=== PATIENT | male | born 1950 | race Two or more races ===

== ENCOUNTER 2017-01-31 07:32 | Day surgery (SDC) | payer MEDICARE, OTHER ==
[~2017-01-31] VITALS: Ht 167.6 cm; Wt 92.5 kg
[2017-01-31] VITALS (9 sets, daily range): BP systolic 110–135; BP diastolic 65–76
[~2017-01-31 07:32] MED LIST: LR 1000ml 1,000 ML IVLG SCH
[2017-01-31] MEDS ORDERED: METFORMIN HCL1000 M1 ORAL (08:15)
[2017-01-31] MEDS ORDERED: METOPROLOL TART25 MG ORAL (08:15)
[2017-01-31] MEDS ORDERED: CLOPIDOGREL75 MG ORAL (08:15)
[2017-01-31] MEDS ORDERED: ASPIR 8181 MG ORAL (08:15)
[2017-01-31] MEDS ORDERED: FENOFIBRATE54 MG ORAL (08:15)
[2017-01-31] MEDS ORDERED: LANTUS SOL100 UNIT/1 SUBQ (08:27)
[2017-01-31] MEDS ORDERED: HUMULIN R100 UNIT/1 SUBQ (08:27)
[2017-01-31] MEDS ORDERED: Propofol 200mg/20ml IV ONE (08:30)
[2017-01-31] MEDS ORDERED: Lidocaine 1% MPF 10mg/ml 5ml ONE (08:30)
[2017-01-31] MEDS ORDERED: LR 1000ml ONE (08:30)
--- NOTE | 2017-01-31 08:36 | Short Stay Surgery H&P ---
History of Present Illness History of Present Illness Chief Complaint Abdominal pains and history of bleeding Peptic ulcer and screening colon. DENTON Mendoza is a 66 year old male who was admitted on for Abdominal Pain/ bleeding ulcer screening colon Patient History Allergies: Coded Allergies: No Known Allergies (Unverified , 01/30/17) PAST MEDICAL HISTORY: Past Surgeries: Social History: Medication History Scheduled Aspirin* (Aspir 81*), 81 MG ORAL DAILY, (Reported) Clopidogrel* (Clopidogrel*), 75 MG ORAL DAILY, (Reported) Fenofibrate (Fenofibrate), 48 MG ORAL DAILY, (Reported) Insulin Glargine (Lantus), 35 SUBQ BEDTIME, (Reported) Metformin Hcl* (Metformin Hcl*), 1,000 MG ORAL DAILY, (Reported) Metoprolol Tartrate* (Metoprolol Tartrate*), 25 MG ORAL EVERY 12 HOURS, ( Reported) Miscellaneous Medications Insulin Regular, Human (Humulin R), 10 SUBQ, (Reported) Review of Systems Cardiovascular: Reports: hypertension Respiratory: Reports: no symptoms Skeletal: Reports: no symptoms Gastrointestinal: Reports: other Genitourinary: Reports: no symptoms Neurologic: Reports: no symptoms Endocrine: Reports: diabetes - type 2 Hematologic: Reports: no symptoms Physical Exam Vital Signs Last Vital Signs Date Time Temp Pulse Resp B/P (MAP) Pulse Ox O2 Delivery O2 Flow Rate FiO2 01/31/17 08:09 97.7 86 17 121/74 97 Room Air Skin: normal HENT: normal Heart: normal Lungs: normal Abdomen: normal Extremities: normal Genitourinary: normal Plan Plan of Care Upper and lower GI endoscopy Preop Interventions None. Summary of Findings See the reports Final Diagnosis: Attestation Are the patient's medical conditions optimized for surgery? Attestation Response: yes GARETT GARCIA Jan 31, 2017 08:36
--- NOTE | 2017-01-31 08:37 | Pre-Procedure Note/Attestation ---
Pre-Procedure Note/Attestation Complete Prior to Procedure Planned Procedure: left Procedure Narrative: Endoscopic exam of the upepr and lower GI tract. Indications for Procedure Pre-Operative Diagnosis: R/O Peptic ulcer /colon tumor. Attestation I attest that I discussed the nature of the procedure; its benefits; risks and complications; and alternatives (and the risks and benefits of such alternatives ), prior to the procedure, with the patient (or the patient's legal loan servicing representative). I attest that, if there was a reasonable possibility of needing a blood transfusion, the patient (or the patient's legal loan servicing representative) was given the [place] [facility] standardized written summary, pursuant to the Walt Garfield Blood Safety Act ([place] Health and Safety Code # 1645, as amended). I attest that I re-evaluated the patient just prior to the surgery and that there has been no change in the patient's H&P, except as documented below: RADHA,SAID Jan 31, 2017 08:37
--- NOTE | 2017-01-31 08:57 | Anethesia Preoperative Eval ---
Anesthesia Pre-op PMH/ROS General Date of Evaluation: Jan 31, 2017 Time of Evaluation: 08:54 Anesthesiologist: junito ASA Score: ASA 3 Mallampati Score Class I : Soft palate, uvula, fauces, pillars visible Class II: Soft palate, uvula, fauces visible Class III: Soft palate, base of uvula visible Class IV: Only hard plate visible Mallampati Classification: Class III Surgeon: Antonio Diagnosis: abdominal pain Surgical Procedure: EGD/Colonoscopy Anesthesia History: none Family History: no anesthesia problems Allergies: Coded Allergies: No Known Allergies (Unverified , 01/30/17) Past Medical History Cardiovascular: Reports: HTN, CAD Gastrointestinal/Genitourinary: Reports: GERD Neurologic/Psychiatric: Denies: dementia, CVA, depression/anxiety, TIA, other Endocrine: Reports: DM HEENT: Denies: cataract (L), cataract (R), glaucoma, [place] (L), [place] (R), other Hematology/Immune: Denies: anemia, DVT, bleeding disorder, other Musculoskeletal/Integumentary: Denies: OA, RA, DJD, DDD, edema, other Other: obesity PSxH Narrative: unknown Anesthesia Pre-op Phys. Exam Physician Exam Last Vital Signs Date Time Temp Pulse Resp B/P (MAP) Pulse Ox O2 Delivery O2 Flow Rate FiO2 01/31/17 08:09 97.7 86 17 121/74 97 Room Air Constitutional: NAD Neurologic: CN 2-12 intact Cardiovascular: RRR Respiratory: CTA Gastrointestinal: S/NT/ND Airway Exam Mallampati Score: Class III MO: full Neck: thick TMD: 1fb ROM: full Dentures: no upper, no lower Anesthesia Pre-op A/P Labs Accucheck 127 Studies Pre-op Studies: EKG - sr Risk Assessment & Plan Assessment: denies CP/SOB, denies taking plavix, dr clarke aware and okayed to proceed Plan: mac Pre-Antibiotics Drug: none BERNADETTERIFERNIE ROJAS SAFETY ANALYST Jan 31, 2017 08:57
--- NOTE | 2017-01-31 09:15 | Immediate Post-Op Evaluation ---
Immediate Post-Op Evalulation Immediate Post-Op Evalulation Procedure: EGD/Colonoscopy Date of Evaluation: Jan 31, 2017 Time of Evaluation: 09:14 IV Fluids: 300 Blood Pressure Systolic: 110 Blood Pressure Diastolic: 68 Pulse Rate: 74 Respiratory Rate: 14 O2 Sat by Pulse Oximetry: 97 Temperature (Fahrenheit): 97.1 Pain Score (1-10): 0 Nausea: No Vomiting: No Complications none Patient Status: awake, reacts, patent Hydration Status: adequate Drug: none TARRILLION,FERNIE FOOD SAFETY DIRECTOR Jan 31, 2017 09:15
--- NOTE | 2017-01-31 09:23 | Endoscopy Procedure Note ---
Endoscopy Procedure Note Indication for Procedure: Abdominal pains and screening colon Procedures Performed: EGD - Compeletely normal Upper GI endoscopy, biopsy done per random from gastric body., colonoscopy - Extremely poor coloon prep. Incindental finding of 3mm hyperplastic polyp found in mid ascendimg colon removed by cold snare. The sample could not be retreived due to poor colon prep. Specimen: yes Pt Tolerated Procedure Well: Yes Estimated Blood Loss: none Anesthesiologist: Dr. wild Anesthesia: moderate sedation Medication Given: see anesthesia record Implant(s) used?: No 50 yrs or older w/o bx or poly: Yes 10yrs. F/U not recommended: Yes 10 yrs. F/U needed: Yes 18 years or older w/prev. colo: Yes Med reason:<3 yrs.: System Reason:<3 yrs.: GARETT GARCIA Jan 31, 2017 09:23
--- NOTE | 2017-01-31 09:24 | Discharge Instructions ---
Discharge Instructions Discharge Instructions Follow up with: See the doctor in office after two weeks. For Congestive Heart Failure Reminder Report to your physician any weight gain of 5 pounds or more in one week. GARETT GARCIA Jan 31, 2017 09:23
--- NOTE | 2017-01-31 10:06 | 48 Hour Post Anesthesia Eval ---
Post Anesthesia Evaluation Procedure: EGD/Colonoscopy Date of Evaluation: Jan 31, 2017 Time of Evaluation: 10:06 Blood Pressure Systolic: 128 0: 73 Pulse Rate: 68 Respiratory Rate: 14 Temperature (Fahrenheit): 98.0 O2 Sat by Pulse Oximetry: 100 Airway: patent Nausea: No Vomiting: No Hydration Status: adequate Cardiopulmonary Status: stable Mental Status/LOC: patient returned to baseline Follow-up Care/Observations: na Post-Anesthesia Complications: none Follow-up care needed: N/A FERNIE DAS CRNA Jan 31, 2017 10:06
--- NOTE | 2017-01-31 20:45 | Procedure Note ---
DATE OF PROCEDURE: 01/31/2017 PROCEDURE: Esophagogastroduodenoscopy with biopsy. PREOPERATIVE DIAGNOSES: 1. Abdominal pain. 2. History of bleeding peptic ulcer. POSTOPERATIVE DIAGNOSIS: Completely normal upper gastrointestinal endoscopy. Biopsy was taken per random from gastric body. MEDICATION USED: Per Dr. Tiwari, anesthesiologist. INSTRUMENT: GIF Olympus upper gastrointestinal video endoscope. DESCRIPTION OF PROCEDURE: The patient after arriving at the endoscopy unit, was told about risks and benefits of the procedure, which he accepted and signed the informed consent. He was then put on the left lateral decubitus position. After adequate IV sedation, the scope was gently passed through the cricopharyngeal area, was lodged into the upper esophagus, gradually advanced towards gastroesophageal junction. The entire length of the esophagus looked normal. No evidence of any pathology such as stricture, ulcers, polyps, etc., was found. GE junction also looked completely normal. No evidence of Faustin's or hiatal hernia noted. At this time, the scope was advanced into the stomach. Gastric cavity was distended. The areas of the fundus and the body and the antrum were examined in a closer fashion, which revealed no abnormality. There was no gastritis, gastric ulcers, or bleeding sites. One random biopsy from gastric body obtained. Subsequently, the scope was passed through normal looking pylorus. First and second portion of duodenum were found also to be completely normal. At this time, the scope was pulled back into the stomach. Gastric cavity was distended with insufflation of air and the areas of the fundus also were examined in a closer fashion, which revealed completely normal findings. At this time, the scope was pulled out and the procedure was terminated. The patient tolerated the procedure well. Said Tanika Barbosa DR: Frida JOB#: [id number] CC: Luisito Sweeney M.D.; Fax#: [phone]
--- NOTE | 2017-01-31 20:45 | Procedure Note ---
DATE OF PROCEDURE: 01/31/2017 PROCEDURE: Total colonoscopy with polypectomy. PREOPERATIVE DIAGNOSIS: Screening colonoscopy. POSTOPERATIVE DIAGNOSES: 1. Extremely poor colon preparation. 2. Incidental findings of hyperplastic polyp of size 3 mm over the proximal ascending colon removed with cold forceps. Otherwise, normal study. MEDICATION USED: Adam Metcalf anesthesiologist INSTRUMENT: GIF Olympus videocolonoscope. DESCRIPTION OF PROCEDURE: The patient after arriving endoscopy unit, was told about risks and benefits of the procedure, which he accepted and signed the informed consent. He was then put on the left lateral decubitus position. After adequate IV sedation, the scope was gently passed through the anal area and careful examination of this section revealed no pathology including the rectum. Finally, the scope was passed through highly redundant left colon, which was filled with somewhat formed stool all along, which made the examination very difficult and suggestive of poor colonic preparation. However with multiple irrigation, scope was gradually advanced toward the splenic flexure, transverse colon, and finally was guided into the right colon. As I mentioned, there was formed stools along the colon and as such, small hyperplastic colonic polyps could not be ruled out though there was only one finding of a 3 mm polypoid lesion over the mid ascending colon, which was grabbed with cold snare and totally removed and unfortunately due to poor colonic preparation, the sample could not be retrieved. There was no bleeding site at the site of polypectomy however. The ileocecal valve also looked normal. At this time within 7 minutes, the scope was gradually pulled out and reexamination with significant irrigation of the colon did not reveal any major pathology though as I mentioned presence of a small hyperplastic polypoid lesions of mentioned area could not be ruled out. The patient tolerated the procedure well and left the endoscopy room in a good condition. Said Tanika Barbosa DR: MELLO JOB#: [id number] CC: Luisito Sweeney M.D.; Fax#: [phone]
== END 2017-01-31 10:25 | disposition home or self-care (01) ==
LOC: GAS 07:32
DX: Z12.11 Encounter for screening for malignant neoplasm of colon (principal); K63.5 Polyp of colon; R10.9 Unspecified abdominal pain; Z79.82 Long term (current) use of aspirin; Z79.84 Long term (current) use of oral hypoglycemic drugs; E11.9 Type 2 diabetes mellitus without complications; I10 Essential (primary) hypertension; I25.10 Atherosclerotic heart disease of native coronary artery without angina pectoris; K21.9 Gastro-esophageal reflux disease without esophagitis; Z79.4 Long term (current) use of insulin
CPT/HCPCS: 43239; 45380; 82962; J2704; J7120; 94003; 94150

== ENCOUNTER 2017-02-28 07:22 | Day surgery (SDC) | payer MEDICARE, OTHER ==
--- NOTE | 2017-02-23 15:26 | Pre-Procedure Note/Attestation ---
Pre-Procedure Note/Attestation Complete Prior to Procedure Planned Procedure: bilateral Procedure Narrative: 1- Ptosis correction upper lids. 2- Entropion correction upper lids. 3-Blepharoplasty uppers lids. Indications for Procedure Pre-Operative Diagnosis: 1- Blepharoptosis upper lids 2-Entropion upper lids. 3-Blepharochalasis upper lids Attestation I attest that I discussed the nature of the procedure; its benefits; risks and complications; and alternatives (and the risks and benefits of such alternatives ), prior to the procedure, with the patient (or the patient's legal customer service representative). I attest that, if there was a reasonable possibility of needing a blood transfusion, the patient (or the patient's legal customer service representative) was given the [facility] standardized written summary, pursuant to the Walt Castro Blood Safety Act ([place] Health and Safety Code # 1645, as amended). I attest that I re-evaluated the patient just prior to the surgery and that there has been no change in the patient's H&P, except as documented below: EVANGELINA PACHECO Feb 23, 2017 15:26
[2017-02-28] VITALS (8 sets, daily range): BP systolic 112–136; BP diastolic 66–73
[~2017-02-28] VITALS: Ht 167.6 cm; Wt 95.3 kg
[~2017-02-28 07:22] MED LIST changes: +ASPIR 8181 MG ORAL; +Akten 3.5% 1ml Btl BOTH EYES ONE; +CLOPIDOGREL75 MG ORAL; +FENOFIBRATE54 MG ORAL; +HUMULIN R100 UNIT/1 SUBQ; +LANTUS SOL100 UNIT/1 SUBQ; -LR 1000ml 1,000 ML IVLG SCH; +Lidocaine 2% 20mg/ml/EPI 0.01mg/ml 20ml ONE; +METFORMIN HCL1000 M1 ORAL; +METOPROLOL TART25 MG ORAL; +Maxitrol Opth Oint 3.5gm BOTH EYES ONE; +Tetracaine 0.5% Opth 4ml Soln ONE
[2017-02-28] MEDS ORDERED: Akten 3.5% 1ml Btl ONE (07:51)
[2017-02-28 08:11] LABS: EOSINOPHILS % (AUTO) 2.9 % (0.0-3.0); LYMPHOCYTES % (AUTO) 32.3 % (20.0-45.0); MEAN CORPUSCULAR HEMOGLOBIN 28.9 PG (27.0-31.0); MEAN CORPUSCULAR HGB CONC 34.1 G/DL (32.0-36.0); MEAN CORPUSCULAR VOLUME 85 FL (80-99); MEAN PLATELET VOLUME 6.1 FL (6.5-10.1); MONOCYTES % (AUTO) 6.9 % (1.0-10.0); NEUTROPHILS % (AUTO) 56.9 % (45.0-75.0); PLATELET COUNT 192 K/UL (150-450); RED BLOOD COUNT 4.85 M/UL (4.70-6.10); RED CELL DISTRIBUTION WIDTH 11.4 % (11.6-14.8)
[2017-02-28 08:17] LABS: ANION GAP 7 mmol/L (5-15); CALCIUM 8.6 MG/DL (8.5-10.1); CARBON DIOXIDE 28 MMOL/L (21-32); CHLORIDE 103 MMOL/L (98-107); GLOMERULAR FILTRATION RATE > 60 mL/min (>60); POTASSIUM 4.3 MMOL/L (3.5-5.1); SODIUM 138 MMOL/L (136-145)
[2017-02-28] MEDS ORDERED: LR 1000ml ONE (09:30)
[2017-02-28] MEDS ORDERED: NS Irrig 1000ml ONE (09:30)
[2017-02-28] MEDS ORDERED: Sterile Water Irrig 1000ml IRRIG ONE (09:30)
[2017-02-28] MEDS ORDERED: fentaNYL 100 mcg/2 mL IV ONE (09:30)
[2017-02-28] MEDS ORDERED: Midazolam 2mg/2ml Inj ONE (09:30)
[2017-02-28] MEDS ORDERED: LR 1000ml 1,000 ML IVLG SCH (10:16)
--- NOTE | 2017-02-28 10:21 | Anethesia Preoperative Eval ---
Anesthesia Pre-op PMH/ROS General Date of Evaluation: Feb 28, 2017 Time of Evaluation: 09:33 Anesthesiologist: David ASA Score: ASA 3 Mallampati Score Class I : Soft palate, uvula, fauces, pillars visible Class II: Soft palate, uvula, fauces visible Class III: Soft palate, base of uvula visible Class IV: Only hard plate visible Mallampati Classification: Class II Surgeon: Benedict Diagnosis: Bilateral ptosis Surgical Procedure: Bilateral upper blepharoplasty Allergies: Coded Allergies: No Known Allergies (Unverified , 02/27/17) Medications: see eMAR Past Medical History Cardiovascular: Reports: CAD - S/P stents Pulmonary: Denies: asthma, COPD, [place], other Gastrointestinal/Genitourinary: Denies: GERD, CRI, ESRD, other Neurologic/Psychiatric: Denies: dementia, CVA, depression/anxiety, TIA, other Endocrine: Reports: DM, Denies: hypothyroidism, steroids, other HEENT: Denies: cataract (L), cataract (R), glaucoma, [place] (L), [place] (R), other Hematology/Immune: Denies: anemia, DVT, bleeding disorder, other Musculoskeletal/Integumentary: Denies: OA, RA, DJD, DDD, edema, other PMH Narrative: CAD (s/p coronary stents 5 years ago), DM PSxH Narrative: Eye surgery, coronary stent placement Anesthesia Pre-op Phys. Exam Physician Exam Last Vital Signs Date Time Temp Pulse Resp B/P (MAP) Pulse Ox O2 Delivery O2 Flow Rate FiO2 02/28/17 07:53 97.8 66 18 112/72 98 Room Air Constitutional: NAD Neurologic: CN 2-12 intact Cardiovascular: RRR, no M/R/G Respiratory: CTA Gastrointestinal: S/NT/ND Airway Exam Mallampati Score: Class II MO: full ROM: full Teeth: intact Anesthesia Pre-op A/P Labs Hematology Test 02/28/17 08:00 White Blood Count 7.0 K/UL (4.8-10.8) Red Blood Count 4.85 M/UL (4.70-6.10) Hemoglobin 14.0 G/DL (14.2-18.0) L Hematocrit 41.0 % (42.0-52.0) L Mean Corpuscular Volume 85 FL (80-99) Mean Corpuscular Hemoglobin 28.9 PG (27.0-31.0) Mean Corpuscular Hemoglobin Concent 34.1 G/DL (32.0-36.0) Red Cell Distribution Width 11.4 % (11.6-14.8) L Platelet Count 192 K/UL (150-450) Mean Platelet Volume 6.1 FL (6.5-10.1) L Neutrophils (%) (Auto) 56.9 % (45.0-75.0) Lymphocytes (%) (Auto) 32.3 % (20.0-45.0) Monocytes (%) (Auto) 6.9 % (1.0-10.0) Eosinophils (%) (Auto) 2.9 % (0.0-3.0) Basophils (%) (Auto) 1.0 % (0.0-2.0) Coagulation Test 02/28/17 08:00 Prothrombin Time 10.0 SEC (9.30-11.50) Prothromb Time International Ratio 1.0 (0.9-1.1) Activated Partial Thromboplast Time 26 SEC (23-33) Chemistry Test 02/28/17 08:00 Sodium Level 138 MMOL/L (136-145) Potassium Level 4.3 MMOL/L (3.5-5.1) Chloride Level 103 MMOL/L (98-107) Carbon Dioxide Level 28 MMOL/L (21-32) Anion Gap 7 mmol/L (5-15) Blood Urea Nitrogen 10 mg/dL (7-18) Creatinine 1.0 MG/DL (0.55-1.30) Estimat Glomerular Filtration Rate > 60 mL/min (>60) Glucose Level 244 MG/DL (74-106) H Calcium Level 8.6 MG/DL (8.5-10.1) Studies Pre-op Studies: EKG - NSR Risk Assessment & Plan Assessment: ASA class 3 patient for bilateral upper blepharoplasty Plan: MAC Status Change Before Surgery: No Pre-Antibiotics Drug: None LUIS MIGUEL DELA CRUZ M.D. Feb 28, 2017 10:21
--- NOTE | 2017-02-28 10:22 | Immediate Post-Op Evaluation ---
Immediate Post-Op Evalulation Immediate Post-Op Evalulation Procedure: Bilateral upper blepharoplasty Date of Evaluation: Feb 28, 2017 Time of Evaluation: 11:23 IV Fluids: 1100 Blood Pressure Systolic: 136 Blood Pressure Diastolic: 70 Pulse Rate: 71 Respiratory Rate: 16 O2 Sat by Pulse Oximetry: 96 Temperature (Fahrenheit): 98.1 Pain Score (1-10): 0 Nausea: No Vomiting: No Complications No complication Patient Status: awake, patent, none Hydration Status: adequate Drug: None LUIS MIGUEL DELA CRUZ M.D. Feb 28, 2017 10:22
[2017-02-28] MEDS ORDERED: fentaNYL 100 mcg/2 mL IV PRN (10:30)
--- NOTE | 2017-02-28 11:18 | Discharge Summary ---
Discharge Summary Discharge Summary Discharge Summary DATE OF ADMISSION: 02/28/2017 DATE OF DISCHARGE: 02/28/2017 REASON FOR HOSPITALIZATION: 1- Ptosis, OU 2- entropion OU 3- Blepharochalasis OU SURGERY PERFORMED: 1- Ptosis correctio 2- Entropion correction 3- Blepharoplasty OU CONDITION IN THE HOSPITAL:The patient tolerated the surgery without complications. DISCHARGE CONDITION: The patient was stable at discharge. DISCHARGE MEDICATIONS: 1. Vigamox eye drops one drop q.i.d, OU 2. Maxitrol eye ointment apply to lids OU 3. Keflex 500 mg q8h [place] q6h POSTOPERATIVE ORDERS: The patient has to rest at home. No bending, No lifting, No watching Television tonight. POSTOPERATIVE FOLLOW UP: The patient will be followed in my office tomorrow morning at 7 o'clock. EVANGEILNA PACHECO Feb 28, 2017 11:18
--- NOTE | 2017-02-28 11:19 | 48 Hour Post Anesthesia Eval ---
Post Anesthesia Evaluation Procedure: Bilateral upper blepharoplasty Date of Evaluation: Feb 28, 2017 Time of Evaluation: 11:45 Blood Pressure Systolic: 135 0: 70 Pulse Rate: 70 Respiratory Rate: 16 O2 Sat by Pulse Oximetry: 97 Airway: patent Nausea: No Vomiting: No Pain Intensity: 0 Hydration Status: adequate Cardiopulmonary Status: Stable Mental Status/LOC: patient returned to baseline Follow-up Care/Observations: As per surgery Post-Anesthesia Complications: No anesthetic complication Follow-up care needed: N/A LUIS MIGUEL DELA CRUZ M.D. Feb 28, 2017 11:19
--- NOTE | 2017-02-28 11:20 | Brief Operative Note ---
Immediate Post Operative Note Operative Note Chief Complaint: Droopy eyelids and difficulty driving or reading Pre-op Diagnosis: 1- Blepharoptosis upper lids 2-Entropion upper lids. 3-Blepharochalasis upper lids Procedure: 1- Ptosis correction upper lids 2- Entropion correction upper lids 3- Blepharoplasty, upper lids Post-op Diagnosis: same as pre-op Surgeon: Evangelina Mcmullen MD Lacrosse Player: None Additional Surgeons: None Anesthesiologist: Dr. Hernandez Anesthesia: local, MAC Specimen: none Complications: none Condition: stable Fluids: 700ml Estimated Blood Loss: minimal Drains: none Implant(s) used?: EVANGELINA Felix Feb 28, 2017 11:20
[2017-02-28] MEDS ORDERED: LR 1000ml 1,000 ML IV SCH (12:16)
[2017-02-28] MEDS ORDERED: Povidone-Iodine 5% opth solution ONE (13:06)
--- NOTE | 2017-03-01 01:30 | Operative Note - Dictated ---
DATE OF OPERATION: 02/28/2017 FACILITY: [facility] SURGEON: Chip Mcmullen M.D. RACE RELATIONS PROFESSOR: None. ANESTHESIOLOGIST: Walt Hernandez M.D. ANESTHESIA: Monitored anesthesia care plus local anesthesia with lidocaine 2% and epinephrine 1:100,000. PREOPERATIVE DIAGNOSES: 1. Ptosis, upper lids. 2. Entropion, upper lids. 3. Dermatochalasis and blepharochalasis, upper lids. POSTOPERATIVE DIAGNOSES: 1. Ptosis, upper lids. 2. Entropion, upper lids. 3. Dermatochalasis and blepharochalasis, upper lids. SURGERY PERFORMED: 1. Ptosis correction, upper lids. 2. Entropion correction, upper lids. 3. Blepharoplasty, upper lids. INDICATION FOR SURGERY: The patient is a 66-year-old gentleman with a history of diabetes mellitus, hypertension, hypercholesterolemia, coronary artery disease, and questionable stroke. The patient has received a stent in 2011. He has had cataract surgery in both eyes in [place]. Angioplasty, bypass. He is taking insulin plus metformin, Crestor, Diovan, and aspirin. He has diabetes mellitus, but no diabetic retinopathy. He is complaining of blurry vision and difficulty driving because of upper lid droopiness. 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 This is a progressive dermatochalasis of skin disease and resulting change of corneal curvature, which induces astigmatism and covers visual axis, which is interruption for driving. The severity of the patient's dermatochalasis, ptosis, entropion, and ectropion are clearly documented on the enclosed photos and the patient's visual lee. The only solution for this patient is correction of all those disfigurement and anatomy changes with surgery. INFORMED CONSENT: The nature of the surgery, risks, benefits, alternatives, and potential complications were explained in detail to the patient in his language, Farsi. He voiced understanding. The potential complications including, but not limited to bleeding, infection, corneal exposure, over correction, under correction, ecchymosis, swelling of the face, hematoma, dry eye syndrome, loss of eyelashes, loss of eyebrows, inequality of both eyes, change in vision, even loss of vision, and even loss of the eye were all explained in detail to the patient. He voiced understanding and accepted all the complications. Then, he signed a consent form, which is in the chart. DESCRIPTION OF SURGERY AND FINDINGS: Following that, the patient was taken to the operation room in a stable condition. Lidocaine gel [place] 3.5% were applied to the conjunctiva of both eyes. Following that, the upper eyelids were marked with a marking pen 10 mm above the root of the lashes and 15 mm below the lower part of the eyebrows. About 25 mm of the skin was left to facilitate eye closure. IV sedation was given by the anesthesiologist, Dr. Hernandez. After adequate anesthesia and sedation had been achieved, the upper eyelids and upper part of the face was anesthetized with 2% lidocaine and epinephrine 1:100,000. Following that, using a Bovie knife, skin and subdermal tissue were dissected from the orbicularis oculi muscle and excised. Following that, two fat compartments were released and sculptured conservatively. Following that, the aponeurosis of the levator palpebrae superior muscle was tacked at about 6 mm in each side and stitched with 6-0 Vicryl. Then the sutures were trimmed and hemostasis was performed. Following that, a groove was made on the tarsal plate 3 mm above the root of the lashes and the tarsal material inside the groove was excised. Following that, the lids of the groove were stitched with 6-0 Vicryl and sutures were trimmed. This way, the eyelid border rotated upwards and lashes were turned from downward to upward. Following that, the skin was stitched with 6-0 plain gut in the fashion of continuous running stitch. At the end of the surgery, Maxitrol ointment was applied to the wound. Following that, the patient was transferred to the recovery room. In the recovery room, the wound was checked for bleeding, but there was no bleeding. Ice pack was applied to the wound. Postoperative orders and directions were given to the patient. The patient will be discharged home upon stabilization. The patient will be followed in the morning in my office. Chip Mcmullen M.D. DR: VANESSA JOB#: [id number] CC:
--- NOTE | 2017-03-01 15:46 | Cardiology Report ---
APPROVED REPORT EKG Measurement Heart [id number] Normal sinus rhythm Nonspecific ST and T wave abnormality Cannot rule out infero-lateral ischemia. Abnormal ECG
--- NOTE | 2017-03-02 22:15 | Pre-op HX & Phy Repo 2 SIG ---
DATE OF ADMISSION: 02/28/2017 REASON FOR EVALUATION: I was asked by Dr. Chip Mcmullen to see this 66-year-old male, who is going for elective surgery on both eyes. The patient has bilateral ptosis. The patient was evaluated and chart reviewed. Please see full ophthalmologic History and Physical by Dr. Chip Mcmullen. PAST MEDICAL HISTORY/REVIEW OF SYSTEMS: Remarkable for insulin-dependent diabetes mellitus. No history of heart attack, but the patient had a coronary artery stent five years ago. The patient has history of hypertension. No history of stroke or seizures. No respiratory problem. No asthma or bronchitis. No history of GI bleeding or heartburn. No history of renal failure or prostate problem. PAST SURGICAL HISTORY: Coronary stent five years ago, one. FAMILY HISTORY: Mother has hypertension and father has liver problems. ALLERGIES: None known. MEDICATIONS: Current medications include Lantus 75 units twice a day, Humalog 15 units three times a day, baby aspirin 81 mg daily, Plavix 75 mg daily, metoprolol, and metformin. HABITS: The patient smoked for about 30 years and stopped 20 years ago. Alcohol occasionally. No street drugs. PHYSICAL EXAMINATION: GENERAL: The patient is alert, well-developed, well-nourished, elderly male in his 60s, in no acute distress. VITAL SIGNS: Blood pressure 172/72, temperature 97.8 degrees, heart rate is 66, respirations 18, and O2 saturation 98% on room air. SKIN: Dry, warm, and clear. No rashes. No diaphoresis. LYMPH NODES: Not enlarged. HEENT: Head, normocephalic and atraumatic. Ears, clear. No discharge. Eyes, full description per Dr. Chip Mcmullen. Mouth, clear and moist. No dentures. Nose, clear. No discharge. CHEST: No deformity or asymmetry. LUNGS: Clear on auscultation and percussion. HEART: Sinus rhythm. No ectopy. No murmur. No S3 or S4. NECK: Supple. No jugular vein distention. Carotid artery +2. Trachea midline. ABDOMEN: Soft and obese. Liver and spleen not enlarged. EXTREMITIES: No edema. No calf tenderness. No varicose veins. GENITOURINARY: No CVA tenderness. No dysuria. NERVOUS SYSTEM: No tremor. No nystagmus. LABORATORY AND DIAGNOSTIC DATA: Electrocardiogram, normal sinus rhythm, 63 per minute, normal ECG. The patient did not eat or drink from last night. Laboratory, blood sugar 227 mg/dL. IMPRESSION: 1. Bilateral ptosis. 2. Insulin-dependent diabetes mellitus, poor control. 3. Coronary heart disease with history of coronary stent five years ago. 4. Hypertension. 5. Obesity, body mass index is 33.5. PLAN: Blepharoplasty bilaterally per Dr. Chip Mcmullen. CONCLUSION: The patient has history of insulin-dependent diabetes mellitus, poor control. He also has hypertension, poor control, not treated. The patient's also has obesity with BMI of 33.9. The patient did not eat or drink from last night. The patient's condition optimized for surgery. Thank you very much, Dr. Mcmullen, for privilege to participate in presurgical care of this interesting patient. Jose Caban M.D. DR: MIO JOB#: [id number] CC:
== END 2017-02-28 12:30 | disposition home or self-care (01) ==
LOC: SUR 07:22
DX: H02.403 Unspecified ptosis of bilateral eyelids (principal); H02.004 Unspecified entropion of left upper eyelid; H02.001 Unspecified entropion of right upper eyelid; H02.834 Dermatochalasis of left upper eyelid; H02.831 Dermatochalasis of right upper eyelid; E11.9 Type 2 diabetes mellitus without complications; I10 Essential (primary) hypertension; E78.00 Pure hypercholesterolemia, unspecified; I25.10 Atherosclerotic heart disease of native coronary artery without angina pectoris; Z79.4 Long term (current) use of insulin; H53.8 Other visual disturbances; Z95.5 Presence of coronary angioplasty implant and graft
CPT/HCPCS: 15822; 36415; 67924; 80048; 82962; 85025; 85610; 85730; 93005; J2250; J3010; J7120; 94003; 94150